=== PATIENT | male | born 1965 | race African-American/Black ===

== ENCOUNTER 2022-05-10 13:15 | Emergency (ER) | payer BC, MEDICAID ==
[~2022-05-10] VITALS: Ht 180.3 cm; Wt 95.0 kg
[2022-05-10 14:03] LABS: BASOPHILS % 0.7 % (0.0-2.0); EOSINOPHILS % 0.7 % (0.0-5.0); HEMATOCRIT. 27.9 % (42.0-52.0); HEMOGLOBIN. 8.6 g/dL (14.0-18.0); LYMPHOCYTES % 21.1 % (20.0-50.0); MEAN CORPUSCULAR HEMOGLOBIN 21.5 pg (28.0-32.0); MEAN CORPUSCULAR VOLUME 69.9 fL (80.0-94.0); MEAN PLATELET VOLUME 8.8 fl (7.4-10.4); MONOCYTES % 8.7 % (2.0-8.0); NEUTROPHILS % 68.8 % (40.0-76.0); PLATELET 278 x1000/uL (130-400); RED BLOOD CELL COUNT 3.99 mill/uL (4.7-6.1); RED CELL DISTRIBUTION WIDTH 18.3 % (11.6-14.6)
[2022-05-10 14:19] LABS: CHLORIDE 105 mEq/L (98-107)
[2022-05-10 15:42] VITALS: BP 118/63
[2022-05-10 17:08] LABS: PLATELET ESTIMATE NORMAL
== END 2022-05-10 16:47 | disposition home or self-care (01) ==
LOC: ER 13:15
DX: R07.89 Other chest pain (principal)
CPT/HCPCS: 36415; 71045; 80053; 83880; 84484; 85025; 93005; 99285